=== PATIENT | male | born 1970 | race Caucasian/White ===

== ENCOUNTER 2024-03-29 20:59 | Emergency (ER) | payer OTHER ==
[2024-03-29] MEDS ORDERED: Bacitracin 1 PK ONE (21:08)
[2024-03-29] MEDS ORDERED: Ibuprofen 200 MG TAB ONE (21:08)
== END 2024-03-29 22:14 ==
LOC: NAV ERS 20:59
DX: S61.412A Laceration without foreign body of left hand, initial encounter (principal); K21.9 Gastro-esophageal reflux disease without esophagitis; I10 Essential (primary) hypertension; Z79.899 Other long term (current) drug therapy; W26.8XXA Contact with other sharp object(s), not elsewhere classified, initial encounter
CPT/HCPCS: 12002; 99283